=== PATIENT | female | born 1955 | race American Indian/Alaskan Native ===

== ENCOUNTER 2017-03-21 09:53 | Outpatient (CLI) | payer OTHER, MEDICARE ==
--- NOTE | 2017-03-21 12:52 | Mammography Report ---
BILATERAL DIGITAL SCREENING MAMMOGRAM with CAD: 03/21/17 09:53:00 CLINICAL: Routine screening. COMPARISON: 12/16/15 FINDINGS: There are bilateral scattered areas of fibroglandular density.No mass, architectural distortion or suspicious calcifications. IMPRESSION: No mammographic evidence of malignancy. BI-RADS CATEGORY: 1 -- Negative RECOMMENDATION: Routine mammographic screening in one year. COMMENT: Patient follow-up letters are generated by our [employer] application.
== END 2017-03-21 09:54 | disposition home or self-care (01) ==
LOC: MAMMO 09:53
PROVIDERS: ATTEND Family Medicine
DX: Z12.31 Encounter for screening mammogram for malignant neoplasm of breast (principal)
CPT/HCPCS: 77067; G0202

== ENCOUNTER 2018-03-22 08:43 | Outpatient (CLI) | payer OTHER, MEDICARE ==
--- NOTE | 2018-03-22 10:35 | Mammography Report ---
BILATERAL DIGITAL SCREENING MAMMOGRAM with CAD: 03/22/18 08:43:00 CLINICAL: Routine screening. COMPARISON: 03/21/17 FINDINGS: There are bilateral scattered areas of fibroglandular density.No mass, architectural distortion or suspicious calcifications. IMPRESSION: No mammographic evidence of malignancy. BI-RADS CATEGORY: 2 - - Benign RECOMMENDATION: Routine mammographic screening in one year. COMMENT: Patient follow-up letters are generated by our [employer] (?) application.
== END 2018-03-22 08:44 | disposition home or self-care (01) ==
LOC: MAMMO 08:43
PROVIDERS: ATTEND Family Medicine
DX: Z12.31 Encounter for screening mammogram for malignant neoplasm of breast (principal); Z88.0 Allergy status to penicillin; Z88.6 Allergy status to analgesic agent
CPT/HCPCS: 77067

== ENCOUNTER 2019-04-06 09:54 | Outpatient (CLI) | payer OTHER, MEDICARE ==
--- NOTE | 2019-04-09 10:41 | Mammography Report ---
DIGITAL SCREENING MAMMOGRAM WITH CAD, 04/06/2019 INDICATION: Routine screening mammography. TECHNIQUE: Digital bilateral 2D mammography was obtained in the craniocaudal and mediolateral obliq ue projections. This examination was interpreted with the benefit of Computer-Aided Detection analysi s. COMPARISON: 03/22/2018 FINDINGS: Breast Density: There are scattered areas of fibroglandular density. There is no evidence of dominant mass, suspicious calcifications or architectural distortion in eithe r breast. IMPRESSION: No mammographic evidence of malignancy. Follow up recommendation: Routine yearly BI-RADS Category 1: Negative. A "normal" or negative report should not discourage follow up or biopsy of a clinically significant f inding. A written summary of these findings will be mailed to the patient. The patient will be entered into a mammography reporting system which will generate a reminder letter for the patient's next appointmen t at the appropriate interval. The [employer] recommends yearly mammograms starting at age 40 and continuing as l raz as a woman is in good health. Breast MRI is recommended for women with an approximate 20-25% or greater lifetime risk of breast cancer, including women with a strong family history of breast or ova consuelo cancer or who have been treated for Hodgkin's disease. Signer Name: Perry Cai MD Signed: 04/09/2019 10:37 AM Workstation Name: [id number]
== END 2019-04-06 09:55 | disposition home or self-care (01) ==
LOC: MAMMO 09:54
PROVIDERS: ATTEND Family Medicine
DX: Z12.31 Encounter for screening mammogram for malignant neoplasm of breast (principal)
CPT/HCPCS: 77067

== ENCOUNTER 2019-04-19 09:53 | Outpatient (CLI) | payer OTHER, MEDICARE ==
--- NOTE | 2019-04-20 09:06 | Mammography Report ---
BONE DEXA CLINICAL: Postmenopausal TECHNIQUE: 2 site bone DEXA performed on an Hologic scanner. FINDINGS: The average BMD of the lumbar spine L1-L4 is 0.768g/cm squared with a T score of -2.5 and a Z score o f -1.7. The average total BMD of the left hip is 0.720 g/cm squared with a T score of -1.8and a Z score of -1 .1. IMPRESSION: 1. WHO classification: Osteoporosis with high fracture risk based on spine measurements. 2. WHO classification Osteopenia with increased fracture risk based on left hip measurements. RECOMMENDATION: Clinical correlation and routine screening. Definitions: BMD equal bone mineral density T score = BMD related to peak bone mass of young adult ([place] expressed an standard deviation) Z score = age-matched BMD expressed in SD World health organization (WHO) diagnostic criteria Normal T score greater than equal to 1 standard deviation Osteopenia T score between -1 and -2.4 standard deviation Osteoporosis T score -2.5 standard deviation or below. Note: BMD is not the only risk factor for fracture; also consider factors such as the patient's age, risk of falling, previous osteoporotic fracture, family history of osteoporotic fractures, current sm oker and low body weight. Z scores are not calculated if greater than 80 years of age. Signer Name: Perry Cai MD Signed: 04/20/2019 9:02 AM Workstation Name: [id number]
== END 2019-04-19 09:54 | disposition home or self-care (01) ==
LOC: MAMMO 09:53
PROVIDERS: ATTEND Family Medicine
DX: Z78.0 Asymptomatic menopausal state (principal)
CPT/HCPCS: 77080

== ENCOUNTER 2020-04-07 10:23 | Outpatient (CLI) | payer MEDICARE, OTHER ==
--- NOTE | 2020-04-07 11:29 | Mammography Report ---
DIGITAL SCREENING MAMMOGRAM WITH CAD, 04/07/2020 INDICATION: Routine screening mammography. SCREENING TECHNIQUE: Digital bilateral 2D mammography was obtained in the craniocaudal and mediolateral obliq ue projections. This examination was interpreted with the benefit of Computer-Aided Detection analysi s. COMPARISON: An 10/21/2018 FINDINGS: Breast Density: There are scattered areas of fibroglandular density. There is no evidence of dominant mass, suspicious calcifications or architectural distortion in the l eft breast. In the lateral central right breast at approximately 9:00, mid depth, a small nodule appe ars to be increasing in size. IMPRESSION: Small but increasing nodule on the right Follow up recommendation: Right breast ultrasound Category 0: Incomplete. Needs additional imaging evaluation and/or prior mammograms for comparison. A "normal" or negative report should not discourage follow up or biopsy of a clinically significant f inding. A written summary of these findings will be mailed to the patient. The patient will be entered into a mammography reporting system which will generate a reminder letter for the patient's next appointmen t at the appropriate interval. The [employer] recommends yearly mammograms starting at age 40 and continuing as l raz as a woman is in good health. Breast MRI is recommended for women with an approximate 20-25% or greater lifetime risk of breast cancer, including women with a strong family history of breast or ova consuelo cancer or who have been treated for Hodgkin's disease. Signer Name: Tanmay Leyva MD Signed: 04/07/2020 11:24 AM Workstation Name: [email or web address]
== END 2020-04-07 10:24 | disposition home or self-care (01) ==
LOC: MAMMO 10:23
PROVIDERS: ATTEND Family Medicine
DX: Z12.31 Encounter for screening mammogram for malignant neoplasm of breast (principal); N64.89 Other specified disorders of breast
CPT/HCPCS: 77067

== ENCOUNTER 2020-04-23 10:37 | Outpatient (CLI) | payer MEDICARE ==
--- NOTE | 2020-04-23 12:08 | Ultrasound Report ---
RIGHT BREAST ULTRASOUND INDICATION: Evaluate finding noted previously in the right breast on the recent screening mammogram. COMPARISON: 04/07/2020, 04/06/2019, 03/22/2018, 03/21/2017, 12/16/2015. FINDINGS: Targeted ultrasound focused in the right lateral breast was performed to evaluate site of a previously noted finding which was seen in this region on the recent screening mammogram. Located at the 9:00 position, 4 cm from the nipple, is a benign-appearing 4 x 4 x 2 mm simple appearing cyst. T he mammographic finding can be seen in the back to 2016 and a slight increase in size of a cyst would not be unusual. No evidence of malignancy. IMPRESSION: No evidence of malignancy. Benign-appearing right breast 9:00 simple cyst. BI-RADS Category 2: Benign. Recommend routine screening mammography in one year A "normal" or negative report should not discourage follow up or biopsy of a clinically significant f inding. A written summary of these findings will be mailed to the patient. FURTHER INFORMATION: According to the [employer], yearly mammograms are recommend ed starting at age 40 and continuing as long as a woman is in good health. Breast MRI is recommended for women with an approximately 20-25% or greater lifetime risk of breast cancer, including women wi th a strong family history of breast or ovarian cancer and women who have been treated for Hodgkin's disease. Signer Name: Maninder Barrera MD Signed: 04/23/2020 12:03 PM Workstation Name: [id number]
== END 2020-04-23 10:38 | disposition home or self-care (01) ==
LOC: US 10:37
PROVIDERS: ATTEND Family Medicine
DX: R92.8 Other abnormal and inconclusive findings on diagnostic imaging of breast (principal)

== ENCOUNTER 2020-09-03 08:07 | Outpatient (CLI) | payer MEDICARE ==
--- NOTE | 2020-09-03 11:59 | Ultrasound Report ---
US abdomen limited INDICATION / CLINICAL INFORMATION: SOF TISSUE MASS LEFT UPPER ABDOMEN. COMPARISON: None available. FINDINGS: Within the left upper quadrant anterior abdominal wall, there is a 3.0 x 2.1 x 0.7 cm somewhat homoge neous mildly hyperechoic subcutaneous lesion. No abnormal flow is seen within or around this. No flui d collections. IMPRESSION: 1. Subcutaneous soft tissue lesion, measurements as above, has sonographic features of lipoma. Signer Name: Marlon Aceves MD Signed: 09/03/2020 11:54 AM Workstation Name: [email or web address]
== END 2020-09-03 08:08 | disposition home or self-care (01) ==
LOC: US 08:07
PROVIDERS: ATTEND Family Medicine
DX: M79.9 Soft tissue disorder, unspecified (principal); R22.9 Localized swelling, mass and lump, unspecified
CPT/HCPCS: 76705

== ENCOUNTER 2021-04-24 10:26 | Outpatient (CLI) | payer MEDICARE ==
--- NOTE | 2021-04-24 12:39 | Mammography Report ---
DIGITAL SCREENING MAMMOGRAM WITH CAD, 04/24/2021 CLINICAL INFORMATION / INDICATION: Routine screening mammography. SCREENING MAMMOGRAM TECHNIQUE: Digital bilateral 2D mammography was obtained in the craniocaudal and mediolateral obliqu e projections. This examination was interpreted with the benefit of Computer-Aided Detection analysis . COMPARISON: 04/07/2020, 04/06/2019 FINDINGS: Breast Density: There are scattered areas of fibroglandular density. No dominant mass, suspicious calcifications, or architectural distortion in either breast. There is a stable nodule in the right. IMPRESSION: No mammographic evidence of malignancy. Follow up recommendation: Routine yearly BI-RADS Category 2: Benign. A "normal" or negative report should not discourage follow up or biopsy of a clinically significant f inding. A written summary of these findings will be mailed to the patient. The patient will be entered into a mammography reporting system which will generate a reminder letter for the patient's next appointmen t at the appropriate interval. The [employer] recommends yearly mammograms starting at age 40 and continuing as l raz as a woman is in good health. Breast MRI is recommended for women with an approximate 20-25% or greater lifetime risk of breast cancer, including women with a strong family history of breast or ova consuelo cancer or who have been treated for Hodgkin's disease. Signer Name: Akin Owen MD Signed: 04/24/2021 12:35 PM Workstation Name: [id number]
== END 2021-04-24 10:27 | disposition home or self-care (01) ==
LOC: MAMMO 10:26
PROVIDERS: ATTEND Physician Assistant
DX: Z12.31 Encounter for screening mammogram for malignant neoplasm of breast (principal)
CPT/HCPCS: 77067

== ENCOUNTER 2021-09-25 10:04 | Outpatient (CLI) | payer MEDICARE ==
--- NOTE | 2021-09-25 12:54 | Mammography Report ---
DEXA BONE DENSITY SCAN INDICATION / CLINICAL INFORMATION: M81.0 OSTEOPOROSIS. 65 years Female COMPARISON: 04/19/2019 LUMBAR SPINE, L1-L4: - Bone mineral density (BMD) = 0.809 g/cm2. - T-score = -2.2 - Z-score = -1.1 Change (%) since most recent prior (if available): 1.2% increase LEFT HIP, TOTAL : - Bone mineral density (BMD) = 0.728 g/cm2. - T-score = -1.8 - Z-score = -0.9 Change (%) since most recent prior (if available): 5.2% increase IMPRESSION: 1. WHO Classification: Osteopenia. Fracture Risk: Increased. Note: 10-Year Fracture Risk (FRAX) not reported. This DEXA unit lacks FRAX functionality. BMD Reporting Guidelines (ISCD, 2015) BMD Reporting in Postmenopausal Women and in Men Age 50 and Older - T-scores are preferred. - The WHO densitometric classification is applicable. BMD Reporting in Females Prior to Menopause and in Males Younger Than Age 50 - Z-scores, not T-scores, are preferred. This is particularly important in children. - A Z-score of -2.0 or lower is defined as below the expected range for age, and a Z-score above -2.0 is within the expected range for age. - Osteoporosis cannot be diagnosed in men under age 50 on the basis of BMD alone. - The WHO diagnostic criteria may be applied to women in the menopausal transition. http://www.iscd.org/official-positions/1836-btlv-nxaiqpvx-positions-adult/ Signer Name: Rigo Ellington MD Signed: 09/25/2021 12:50 PM Workstation Name: [id number]
== END 2021-09-25 10:05 | disposition home or self-care (01) ==
LOC: MAMMO 10:04
PROVIDERS: ATTEND Family Medicine
DX: M81.0 Age-related osteoporosis without current pathological fracture (principal); Z78.0 Asymptomatic menopausal state
CPT/HCPCS: 77080

== ENCOUNTER 2021-11-09 11:42 | Outpatient (CLI) | payer MEDICARE ==
--- NOTE | 2021-11-09 14:11 | XRay Report ---
CHEST 2 VIEWS INDICATION / CLINICAL INFORMATION: N18.5 CHRONIC KIDNEY DISEASE STAGE 5. COMPARISON: 09/20/09. FINDINGS: SUPPORT DEVICES: None. HEART / MEDIASTINUM: The heart size and pulmonary vasculature are normal. LUNGS / PLEURA: No significant pulmonary or pleural abnormality. No pneumothorax. ADDITIONAL FINDINGS: No significant additional findings. IMPRESSION: No acute abnormality or significant change. Signer Name: Davey Morris MD Signed: 11/09/2021 2:06 PM Workstation Name: [id number]
== END 2021-11-09 11:43 | disposition home or self-care (01) ==
LOC: XRAY 11:42
PROVIDERS: ATTEND Internal Medicine Nephrology
DX: N18.5 Chronic kidney disease, stage 5 (principal)
CPT/HCPCS: 71046